=== PATIENT | male | born 1980 | race Hispanic/Latino ===

== ENCOUNTER → 2021-01-19 | Day surgery (SDC) | payer BC ==
[2021-01-17 12:21] LABS: BASOPHILS # (AUTO) 0.1 (0.0-0.1); BASOPHILS % 0.6 % (0.0-1.0); EOSINOPHILS # (AUTO) 0.2 (0.0-0.4); EOSINOPHILS % 2.2 % (0.0-6.0); HEMATOCRIT 45.2 % (38.2-49.6); HEMOGLOBIN 15.3 g/dL (14.0-18.0); LYMPHOCYTES # (AUTO) 2.6 (1.0-3.2); LYMPHOCYTES % 29.7 % (18.0-39.1); MEAN CORPUSCULAR HEMOGLOBIN 29.7 pg (28-32); MEAN CORPUSCULAR HGB CONC 33.8 g/dL (31-35); MEAN CORPUSCULAR VOLUME 87.8 fL (81-99); MONOCYTES # (AUTO) 0.6 (0.2-0.8); MONOCYTES % 7.2 % (4.4-11.3); NEUTROPHILS # (AUTO) 5.2 (2.1-6.9); NEUTROPHILS % 59.5 % (38.7-80.0); PLATELET COUNT 331 x10e3/uL (140-360); RED BLOOD COUNT 5.15 x10e6/uL (4.3-5.7); RED CELL DISTRIBUTION WIDTH 12.8 % (11.7-14.4)
[2021-01-17 12:43] LABS: ALANINE AMINOTRANSFERASE 48 IU/L (0-55); ALBUMIN 4.2 g/dL (3.5-5.0); ALBUMIN/GLOBULIN RATIO 1.2 (0.8-2.0); ALKALINE PHOSPHATASE 119 IU/L (40-150); ANION GAP 15.9 mmol/L (8-16); BLOOD UREA NITROGEN 17 mg/dL (7-26); BUN/CREATININE RATIO 19 (6-25); CALCIUM 9.9 mg/dL (8.4-10.2); CARBON DIOXIDE 25 mmol/L (22-29); CHLORIDE 102 mmol/L (98-107); CREATININE, SERUM 0.88 mg/dL (0.72-1.25); EST GLOMERULAR FILTRATION RATE > 60 ML/MIN (60-); GLUCOSE 226 mg/dL (74-118); POTASSIUM 3.9 mmol/L (3.5-5.1); SODIUM 139 mmol/L (136-145)
[2021-01-19] VITALS (8 sets, daily range): BP systolic 97–142; BP diastolic 60–79
[~2021-01-19] VITALS: Ht 185.4 cm; Wt 136.1 kg
[~2021-01-19] MED LIST: ADDERALL XR 3030 MG PO; ASPIRIN EC81 MG PO; ATENOLOL50 MG PO; ATORVASTATIN CA20 MG PO; CIALIS5 MG PO; DICYCLOMINE HCL20 MG PO; FAMOTIDINE20 MG PO; FENTANYL CITRATE/PF 100MCG/2 ML INJ ONE; FISH OIL 1,0001 EAC2 PO; HEPARIN SOD/SOD CHLORIDE 2,000 ML ONE; HUMALOG100 UNIT/3 SC; HYDROCHLOROTHIA25 MG PO; IOPAMIDOL 370 MG/ML 200 ML INFUS..BTL INJ ONE; LAMOTRIGINE100 MG PO; LASIX20 MG PO; LIDOCAINE HCL 2% LOCAL 20 ML VIAL ONE; LOSARTAN POTAS100 MG PO; MECLIZINE HCL12.5 MG PO; METFORMIN HCL500 MG PO; METHOCARBAMOL750 MG PO; MIDAZOLAM HCL 2 MG/2 ML VIAL ONE; MONTELUKAST SOD10 MG PO; NEURONTIN300 MG PO; NITROGLYCERIN0.4 MG SL; PANTOPRAZOLE SO40 MG PO; POTASSIUM CHLO10 ME1 PO; PROMETHAZINE HC25 M1 PO; SEROQUEL50 MG PO; SODIUM CHLORIDE 0.9% 1000ML 1,000 ML ONE; TRESIBA FL200 UNIT/1 SC; ZOFRAN4 MG PO; ZYRTEC10 MG PO
== END | disposition home or self-care (01) ==
LOC: CATH LAB 11:46
PROVIDERS: ATTEND Internal Medicine Interventional Cardiology
DX: I42.8 Other cardiomyopathies (principal); I20.8 Other forms of angina pectoris; R94.39 Abnormal result of other cardiovascular function study; E78.00 Pure hypercholesterolemia, unspecified; E11.9 Type 2 diabetes mellitus without complications; F90.9 Attention-deficit hyperactivity disorder, unspecified type; Z01.812 Encounter for preprocedural laboratory examination; Z20.822 Contact with and (suspected) exposure to COVID-19; Z79.4 Long term (current) use of insulin; Z79.82 Long term (current) use of aspirin; Z68.39 Body mass index [BMI] 39.0-39.9, adult; Z82.49 Family history of ischemic heart disease and other diseases of the circulatory system; Z83.3 Family history of diabetes mellitus
CPT/HCPCS: 36415; 80053; 83880; 85025; 93458; C1887; J2001; J2250; J3010; J7030; Q9967; U0002; 99152